=== PATIENT | female | born 1985 | race Caucasian/White ===

== ENCOUNTER 2016-07-23 17:42 | Emergency (ER) | payer OTHER ==
[2016-07-23] MEDS ORDERED: SODIUM CHLORIDE 0.9% 500 ML IV STA (18:32)
[2016-07-23] MEDS ORDERED: ONDANSETRON 4 MG/2 ML VIAL IVP STA ×2 (18:32→18:41)
[2016-07-23 19:33] LABS: ALT 23 U/L (9-52); AST 24 U/L (14-36); Alkaline Phosphatase 104 U/L (38-126); Anion Gap 16 mmol/L; Blood Urea Nitrogen 9 mg/dL (7-17); Calcium 10.9 mg/dL (8.4-10.2); Carbon Dioxide 23 mmol/L (22-30); Chloride 105 mmol/L (98-107); Glucose 95 mg/dL (74-99); Non-African American GFR(MDRD) >60 (>60 ml/min/1.73 sqM); Potassium 4.4 mmol/L (3.5-5.1); Sodium 144 mmol/L (137-145); Total Bilirubin 0.7 mg/dL (0.2-1.3); Total Protein 8.5 g/dL (6.3-8.2)
[2016-07-23 19:38] LABS: Basophils # (A) 0.1 k/uL (0-0.2); Basophils % (A) 1 %; CH 32.9; CHCM 34.4; Eosinophils % (A) 0 %; HCT 47.5 % (34.0-46.0); HDW 2.34; HGB 15.9 gm/dL (11.4-16.0); Luc # (Auto) 0.13; Luc % (Auto) 1; Lymphocytes # (A) 1.8 k/uL (1.0-4.8); Lymphocytes % (A) 17 %; MCHC 33.4 g/dL (31.0-37.0); MCV 95.9 fL (80.0-100.0); Mean Platelet Volume 7.5; Monocytes # (A) 0.4 k/uL (0-1.0); Monocytes % (A) 4 %; Neutrophils # (A) 8.1 k/uL (1.3-7.7); Neutrophils % (A) 77 %; RBC 4.95 m/uL (3.80-5.40); RDW 13.4 % (11.5-15.5); WBC 10.6 k/uL (3.8-10.6); WBC (Perox) 10.86
--- NOTE | 2016-07-23 19:50 | ED ---
General Adult HPI - General Chief complaint: Nausea/Vomiting/Diarrhea Stated complaint: vomiting Time Seen by Provider: 07/23/16 18:31 Source: patient, RN notes reviewed Mode of arrival: ambulatory Limitations: no limitations - History of Present Illness Initial comments: chief complaint history of present illness a 22-year-old female here for complaint of Klonopin withdrawal. Patient reports she's not been on Klonopin for approximately one week. She states her current psychiatrist stopped the medication. She also notes that approximately one month ago she stopped it on her own for one week. She's not been able take rest. All. Denying any suicidal thoughts or depression. - Related Data Home Medications Medication Instructions Recorded Confirmed [place] Carbonate [[place] 600 mg PO HS 07/23/16 07/23/16 Carbonate ER] Previous Rx's Medication Instructions Recorded Diazepam [Valium] 5 mg PO BID #15 tab 07/23/16 Famotidine [Pepcid] 20 mg PO DAILY #30 tablet 07/23/16 Allergies Allergy/AdvReac Type Severity Reaction Status Date / Time No Known Allergies Allergy Verified 07/23/16 17:54 Review of Systems ROS Statement: Those systems with pertinent positive or pertinent negative responses have been documented in the HPI. review of systems not feeling well. States she thinks he is withdrawing from Klonopin. Feels nauseated. Generally unwell. No significant shortness of breath or chest pain or palpitations. No apparent neuro deficits. All systems were reviewed past medical problems significant for Manic episodes. Which is currently taking lithium. Her surgeries include jaw surgery because she stopped Klonopin some 5 or 6 years ago fell had a seizure and broke her jaw. The patient's family history significant for others with manic problems also cancers of the stomach and melanomas. Patient denies ALLERGIES, she does smoke, strongly encouraged to stop, denies alcohol use. ROS Other: All systems not noted in ROS Statement are negative. Past Medical History Past Medical History: Seizure Disorder History of Any Multi-Drug Resistant Organisms: None Reported Additional Past Surgical History / Comment(s): jaw surgery Past Psychological History: Bipolar Smoking Status: Current every day smoker Past Alcohol Use History: None Reported Past Drug Use History: None Reported General Exam - General Exam Comments Initial Comments: General: The patient is awake and alert, states she thinks she is having withdrawal from being off Klonopin for one week. Vital signs show some is 99.7 pulse 57 respiratory rate 14 pulse ox on percent room air blood pressure 136/90 the patient is new to the area. patient is new to the area, she is looking for a new psychologist or psychiatrist. She will be referred on to [facility].. Eye: Pupils are equal, round and reactive to light, extra-ocular movements are intact ; there is normal conjunctiva bilaterally. No signs of icterus. Ears, nose, mouth and throat: There are moist mucous membranes Neck: The neck is supple, Cardiovascular: There is a regular rate and rhythm. No murmur, rub or gallop is appreciated. Respiratory: Lungs are clear to auscultation, respirations are non-labored, breath sounds are equal. No wheezes, stridor, rales, or rhonchi. Gastrointestinal: complains of nausea Back: MRIs aches and pains. Musculoskeletal: Normal ROM, Sensation intact. well-healed scars on her right wrist. Neurological: no neuro deficits Skin: Skin is warm and dry and no rashes or lesions are noted. Psychiatric: history of manic periods, takes lithium and recently her supply of Klonopin through her psychiatrist has ended. Limitations: no limitations Course Vital Signs 07/23/16 07/23/16 17:50 20:04 Temperature 99.7 F H Pulse Rate 57 L 72 Respiratory 14 18 Rate Blood Pressure 136/90 146/90 O2 Sat by Pulse 100 100 Oximetry Medical Decision Making - Medical Decision Making Medical decision making; patient's white count is 10 hemoglobin 15.9 hematocrit of 47. Patient's potassium is 4.4 with a BUN 9 creatinine 0.75 and a GFR is 60. Glucose is 95. Patient received IV Valium which helped with her withdrawal type symptoms and she will be placed on Valium 5 mg twice a day for the next week as she tries to reestablish itself locally with [facility] and a physician. Patient complains of dry heaves she was given Zofran which helped but she was also given Protonix IV. On discharge she'll be placed on as noted above Valium 5 mg twice a day, Pepcid 20 mg twice a day. Antacids as needed when necessary basis. Advised to follow- up with her new physician and call and get established with [facility]. - Lab Data Result diagrams: 07/23/16 19:18 07/23/16 19:18 Lab Results 07/23/16 07/23/16 Range/Units 19:18 19:18 WBC 10.6 (3.8-10.6) k/uL RBC 4.95 (3.80-5.40) m/uL Hgb 15.9 (11.4-16.0) gm/dL Hct 47.5 H (34.0-46.0) % MCV 95.9 (80.0-100.0) fL MCH 32.0 (25.0-35.0) pg MCHC 33.4 (31.0-37.0) g/dL RDW 13.4 (11.5-15.5) % Plt Count 403 (150-450) k/uL Neutrophils % 77 % Lymphocytes % 17 % Monocytes % 4 % Eosinophils % 0 % Basophils % 1 % Neutrophils # 8.1 H (1.3-7.7) k/uL Lymphocytes # 1.8 (1.0-4.8) k/uL Monocytes # 0.4 (0-1.0) k/uL Eosinophils # 0.0 (0-0.7) k/uL Basophils # 0.1 (0-0.2) k/uL Sodium 144 (137-145) mmol/L Potassium 4.4 (3.5-5.1) mmol/L Chloride 105 (98-107) mmol/L Carbon Dioxide 23 (22-30) mmol/L Anion Gap 16 mmol/L BUN 9 (7-17) mg/dL Creatinine 0.75 (0.52-1.04) mg/dL Est GFR (MDRD) Af Amer >60 (>60 ml/min/1.73 sqM) Est GFR (MDRD) Non-Af >60 (>60 ml/min/1.73 sqM) Glucose 95 (74-99) mg/dL Calcium 10.9 H (8.4-10.2) mg/dL Total Bilirubin 0.7 (0.2-1.3) mg/dL AST 24 (14-36) U/L ALT 23 (9-52) U/L Alkaline Phosphatase 104 (38-126) U/L Total Protein 8.5 H (6.3-8.2) g/dL Albumin 5.3 H (3.5-5.0) g/dL Disposition Clinical Impression: Benzodiazepine withdrawal, Gastritis Disposition: HOME SELF-CARE Condition: Fair Additional Instructions: take Valium 5 mg twice a day. Follow up with [facility] and a local physician for further evaluation for help with benzodiazepine withdrawal. Take Pepcid as directed, antacids as needed Prescriptions: Diazepam [Valium] 5 mg PO BID #15 tab Famotidine [Pepcid] 20 mg PO DAILY #30 tablet Referrals: Frank Davis MD [Primary Care Provider] - 1-2 days
[2016-07-23] MEDS ORDERED: DIAZEPAM 5 MG/ML 2 ML SYRINGE IVP STA (19:51)
[2016-07-23 20:05] VITALS: BP 146/90; PULSE 72; RESP 18
[2016-07-23] MEDS ORDERED: PANTOPRAZOLE 40 MG/10 ML VIAL IVP STA (20:25)
[2016-07-23] MEDS ORDERED: HYDROmorphone 1 MG/ML 1 ML SYRINGE IVP STA (20:39)
[2016-07-23 20:54] VITALS: TEMP 98
== END 2016-07-23 20:53 | disposition home or self-care (01) ==
LOC: EC 17:42
DX: F13.239 Sedative, hypnotic or anxiolytic dependence with withdrawal, unspecified (principal); K29.70 Gastritis, unspecified, without bleeding; F31.9 Bipolar disorder, unspecified; F17.200 Nicotine dependence, unspecified, uncomplicated; Z79.899 Other long term (current) drug therapy
CPT/HCPCS: 99284; 96374; 96375 ×3; 96361 ×2; 36415; 80053; 85025; J3360; J2405; J1170; C9113

== ENCOUNTER 2016-08-18 21:05 | Emergency (ER) | payer OTHER ==
[2016-08-18] MEDS ORDERED: ONDANSETRON 4 MG/2 ML VIAL IVP STA (21:35)
[2016-08-18] MEDS ORDERED: HYDROmorphone 1 MG/ML 1 ML SYRINGE IVP STA (21:35)
[2016-08-18] MEDS ORDERED: SODIUM CHLORIDE 0.9% 1,000 ML IV STA (21:35)
--- NOTE | 2016-08-18 21:51 | ED ---
Abdominal Pain HPI - General Chief Complaint: Abdominal Pain Stated Complaint: abdominal pain Time Seen by Provider: 08/18/16 21:29 Source: patient, RN notes reviewed Mode of arrival: ambulatory Limitations: no limitations - History of Present Illness Initial Comments: 30-year-old female presents to the emergency Department chief complaint of left lower quadrant abdominal pain. Patient said this started about an hour ago. Patient states it also and stabbing type pain. Patient states that it is just to her left side. Patient denies any burning or stinging with urination. Patient denies any with radiation. Patient states that she has never had a feeling this before. Patient denies any abdominal surgeries. Patient denies any concern for .Patient denies any recent fever, chills, shortness of breath, chest pain, back pain, nausea vomiting, numbness or tingling, dysuria or hematuria, constipation or diarrhea, headaches or visual changes, or any other current symptoms. - Related Data Home Medications Medication Instructions Recorded Confirmed [place] Carbonate [[place] 600 mg PO HS 07/23/16 08/18/16 Carbonate ER] Cranberry Fruit Concentrate [Azo 250 mg PO DAILY PRN 08/18/16 08/18/16 Cranberry] Mirtazapine [Remeron] 30 mg PO HS 08/18/16 08/18/16 diphenhydrAMINE HCL [Benadryl] 50 mg PO HS PRN 08/18/16 08/18/16 Previous Rx's Medication Instructions Recorded Diazepam [Valium] 5 mg PO BID #15 tab 07/23/16 Allergies Allergy/AdvReac Type Severity Reaction Status Date / Time No Known Allergies Allergy Verified 08/18/16 22:33 Review of Systems ROS Statement: Those systems with pertinent positive or pertinent negative responses have been documented in the HPI. ROS Other: All systems not noted in ROS Statement are negative. Past Medical History Past Medical History: Seizure Disorder History of Any Multi-Drug Resistant Organisms: None Reported Additional Past Surgical History / Comment(s): jaw surgery Past Psychological History: Bipolar Smoking Status: Current every day smoker Past Alcohol Use History: None Reported Past Drug Use History: None Reported General Exam - General Exam Comments Initial Comments: General: The patient is awake and alert, in no distress, and does not appear acutely ill. Eye: Pupils are equal, round and reactive to light, extra-ocular movements are intact; there is normal conjunctiva bilaterally. No signs of icterus. Ears, nose, mouth and throat: There are moist mucous membranes. Neck: The neck is supple, there is no tenderness. Cardiovascular: There is a regular rate and rhythm. No murmur, rub or gallop is appreciated. Respiratory: Lungs are clear to auscultation, respirations are non-labored, breath sounds are equal. No wheezes, stridor, rales, or rhonchi. Gastrointestinal: Soft, non-distended, left lower quadrant tenderness of the abdomen without masses or organomegaly noted. There is no rebound or guarding present. No CVA tenderness. Bowel sounds are unremarkable. Back: There is no tenderness to palpation in the midline. There is no obvious deformity. No rashes noted. Musculoskeletal: Normal ROM, no tenderness, There is no pedal edema. There is no calf tenderness or swelling. Sensation intact. Pulses equal bilaterally 2+. Neurological: CN II-XII intact, There are no obvious motor or sensory deficits. Coordination appears grossly intact. Speech is normal. Skin: Skin is warm and dry and no rashes or lesions are noted. Psychiatric: Cooperative, appropriate mood & affect, normal judgment. Limitations: no limitations Course Vital Signs 08/18/16 08/19/16 21:13 01:00 Temperature 97.8 F Pulse Rate 80 80 Respiratory 18 16 Rate Blood Pressure 120/77 106/56 O2 Sat by Pulse 96 Oximetry - Reevaluation(s) Reevaluation #1: 08/19/16 01:44 Patient continues to request Dilaudid. Reevaluation #2: 08/19/16 01:44 Patient did have a suspected fall when going to the bathroom. 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 This time we did discuss what to watch for and follow-up. Medical Decision Making - Medical Decision Making 30-year-old female presents for left-sided abdominal pain. This time ultrasound CAT scan and lab work is reviewed that does not show any acute process. This time the patient is requesting discharge home. This time we discussed close follow-up with discussed return parameters and all the patient' s questions. She stated that she understood and she is given the plan. At this time she'll be discharged home. - Lab Data Result diagrams: 08/18/16 21:57 08/18/16 21:57 Lab Results 08/18/16 08/18/16 08/18/16 Range/Units 21:57 21:57 21:57 WBC 9.1 (3.8-10.6) k/uL RBC 4.22 (3.80-5.40) m/uL Hgb 14.3 (11.4-16.0) gm/dL Hct 40.2 (34.0-46.0) % MCV 95.2 (80.0-100.0) fL MCH 33.9 (25.0-35.0) pg MCHC 35.6 (31.0-37.0) g/dL RDW 12.9 (11.5-15.5) % Plt Count 327 (150-450) k/uL Neutrophils % 38 % Lymphocytes % 42 % Monocytes % 8 % Eosinophils % 8 % Basophils % 1 % Neutrophils # 3.5 (1.3-7.7) k/uL Lymphocytes # 3.8 (1.0-4.8) k/uL Monocytes # 0.7 (0-1.0) k/uL Eosinophils # 0.7 (0-0.7) k/uL Basophils # 0.1 (0-0.2) k/uL Sodium 139 (137-145) mmol/L Potassium 4.4 (3.5-5.1) mmol/L Chloride 106 (98-107) mmol/L Carbon Dioxide 24 (22-30) mmol/L Anion Gap 9 mmol/L BUN 10 (7-17) mg/dL Creatinine 0.80 (0.52-1.04) mg/dL Est GFR (MDRD) Af Amer >60 (>60 ml/min/1.73 sqM) Est GFR (MDRD) Non-Af >60 (>60 ml/min/1.73 sqM) Glucose 116 H (74-99) mg/dL Plasma Lactic Acid Ki 1.2 (0.7-2.0) mmol/L Calcium 9.6 (8.4-10.2) mg/dL Total Bilirubin 0.4 (0.2-1.3) mg/dL AST 20 (14-36) U/L ALT 24 (9-52) U/L Alkaline Phosphatase 81 (38-126) U/L Total Protein 6.3 (6.3-8.2) g/dL Albumin 4.1 (3.5-5.0) g/dL Amylase 46 (30-110) U/L Lipase 48 (23-300) U/L Urine Color Urine Appearance (Clear) Urine pH (5.0-8.0) Ur Specific [place] (1.001-1.035) Urine Protein (Negative) Urine Glucose (UA) (Negative) Urine Ketones (Negative) Urine Blood (Negative) Urine Nitrite (Negative) Urine Bilirubin (Negative) Urine Urobilinogen (<2.0) mg/dL Ur Leukocyte Esterase (Negative) Urine RBC (0-5) /hpf Urine WBC (0-5) /hpf Ur Squamous Epith Cells (0-4) /hpf Urine Bacteria (None) /hpf Urine HCG, Qual (Not Detectd) 08/18/16 08/18/16 Range/Units 22:20 22:20 WBC (3.8-10.6) k/uL RBC (3.80-5.40) m/uL Hgb (11.4-16.0) gm/dL Hct (34.0-46.0) % MCV (80.0-100.0) fL MCH (25.0-35.0) pg MCHC (31.0-37.0) g/dL RDW (11.5-15.5) % Plt Count (150-450) k/uL Neutrophils % % Lymphocytes % % Monocytes % % Eosinophils % % Basophils % % Neutrophils # (1.3-7.7) k/uL Lymphocytes # (1.0-4.8) k/uL Monocytes # (0-1.0) k/uL Eosinophils # (0-0.7) k/uL Basophils # (0-0.2) k/uL Sodium (137-145) mmol/L Potassium (3.5-5.1) mmol/L Chloride (98-107) mmol/L Carbon Dioxide (22-30) mmol/L Anion Gap mmol/L BUN (7-17) mg/dL Creatinine (0.52-1.04) mg/dL Est GFR (MDRD) Af Amer (>60 ml/min/1.73 sqM) Est GFR (MDRD) Non-Af (>60 ml/min/1.73 sqM) Glucose (74-99) mg/dL Plasma Lactic Acid Ki (0.7-2.0) mmol/L Calcium (8.4-10.2) mg/dL Total Bilirubin (0.2-1.3) mg/dL AST (14-36) U/L ALT (9-52) U/L Alkaline Phosphatase (38-126) U/L Total Protein (6.3-8.2) g/dL Albumin (3.5-5.0) g/dL Amylase (30-110) U/L Lipase (23-300) U/L Urine Color Light Yellow Urine Appearance Cloudy H (Clear) Urine pH 6.0 (5.0-8.0) Ur Specific [place] 1.004 (1.001-1.035) Urine Protein Negative (Negative) Urine Glucose (UA) Negative (Negative) Urine Ketones Negative (Negative) Urine Blood Negative (Negative) Urine Nitrite Negative (Negative) Urine Bilirubin Negative (Negative) Urine Urobilinogen <2.0 (<2.0) mg/dL Ur Leukocyte Esterase Negative (Negative) Urine RBC 1 (0-5) /hpf Urine WBC 3 (0-5) /hpf Ur Squamous Epith Cells 3 (0-4) /hpf Urine Bacteria Occasional H (None) /hpf Urine HCG, Qual Not Detected (Not Detectd) Disposition Clinical Impression: Abdominal pain Disposition: TRANSFER TO PSYCH HOSP/UNIT Condition: Stable Instructions: Abdominal Pain (ED) Additional Instructions: Please use medication as discussed. Please follow up with family doctor if symptoms have not improved over the next two days. Please return to the emergency room if your symptoms increase or worsen or for any other concerns. Referrals: Frank Davis MD [Primary Care Provider] - 1-2 days Time of Disposition: 01:44
[2016-08-18 22:17] LABS: Basophils # (A) 0.1 k/uL (0-0.2); Basophils % (A) 1 %; CH 32.1; CHCM 33.9; Eosinophils # (A) 0.7 k/uL (0-0.7); Eosinophils % (A) 8 %; HCT 40.2 % (34.0-46.0); HDW 2.34; HGB 14.3 gm/dL (11.4-16.0); Luc # (Auto) 0.33; Luc % (Auto) 4; Lymphocytes # (A) 3.8 k/uL (1.0-4.8); Lymphocytes % (A) 42 %; MCH 33.9 pg (25.0-35.0); MCHC 35.6 g/dL (31.0-37.0); MCV 95.2 fL (80.0-100.0); Mean Platelet Volume 7.7; Monocytes # (A) 0.7 k/uL (0-1.0); Monocytes % (A) 8 %; Neutrophils # (A) 3.5 k/uL (1.3-7.7); Neutrophils % (A) 38 %; RBC 4.22 m/uL (3.80-5.40); RDW 12.9 % (11.5-15.5); WBC 9.1 k/uL (3.8-10.6); WBC (Perox) 8.98
[2016-08-18 22:19] LABS: ALT 24 U/L (9-52); AST 20 U/L (14-36); Alkaline Phosphatase 81 U/L (38-126); Amylase 46 U/L (30-110); Anion Gap 9 mmol/L; Blood Urea Nitrogen 10 mg/dL (7-17); Calcium 9.6 mg/dL (8.4-10.2); Carbon Dioxide 24 mmol/L (22-30); Chloride 106 mmol/L (98-107); Glucose 116 mg/dL (74-99); Non-African American GFR(MDRD) >60 (>60 ml/min/1.73 sqM); Potassium 4.4 mmol/L (3.5-5.1); Sodium 139 mmol/L (137-145); Total Bilirubin 0.4 mg/dL (0.2-1.3); Total Protein 6.3 g/dL (6.3-8.2)
[2016-08-18 22:32] LABS: Appearance,Urine Cloudy (Clear); Bacteria,Urine Occasional /hpf; Bilirubin,Urine Negative (Negative); Glucose,Urine (UA) Negative (Negative); Ketones,Urine Negative (Negative); Leukocyte Esterase,Urine Negative (Negative); Nitrite,Urine Negative (Negative); Particle Count 1587; Protein,Urine Negative (Negative); RBC,Urine 1 /hpf (0-5); Specific Gravity,Urine 1.004 (1.001-1.035); Squamous Epithelial Cell,Urine 3 /hpf (0-4); UA Billing (MACRO vs. MICRO) MICRO; Urobilinogen,Urine <2.0 mg/dL (<2.0); WBC,Urine 3 /hpf (0-5)
[2016-08-18] MEDS ORDERED: KETOROLAC 30 MG/ML 1 ML VIAL IVP STA (23:06)
--- NOTE | 2016-08-18 23:53 | US ---
EXAM: US Pelvis, Transvaginal CLINICAL HISTORY: Reason: Pain TECHNIQUE: Real-time transvaginal pelvic ultrasound (complete) with image documentation. Transvaginal imaging was used for better evaluation of the endometrium and adnexa. COMPARISON: No relevant prior studies available. FINDINGS: Note, transvaginal imaging only. Uterus/cervix: Uterine size measured at 6.1 x 4.0 x 3.6 cm. no myometrial abnormality is seen. Endometrial stripe within normal limits, thickness measures 8.4 mm. Tiny cervical nabothian cysts. Right ovary: Right ovary measures 2.9 x 1.5 x 1.3 cm and contains small follicles with arterial and venous flow present. Left ovary: Left ovary measures 2.8 x 1.9 x 1.6 cm and contains a 1.9 x 1.3 x 1.2 cm cyst or dominant follicle, along with other smaller follicles within. Arterial and venous flow seen in the left ovary. Free fluid: No free fluid is seen. Bladder: Limited evaluation with this probe. IMPRESSION: Exam within physiologic normal limits including 1.9 cm cyst or dominant follicle in the left ovary, without specific source of the patient's pain detected.
[2016-08-18] MEDS ORDERED: RX INFO: IV CONTRAST WAS GIVEN 1 EACH MISC MISCELLANE PRN (23:59)
--- NOTE | 2016-08-19 00:59 | CT ---
EXAM: CT Abdomen and Pelvis With Intravenous Contrast CLINICAL HISTORY: Reason: Pain TECHNIQUE: Axial computed tomography images of the abdomen and pelvis with intravenous contrast. CTDI is 9.60 mGy and DLP is 342.50 mGy-cm. This CT exam was performed using one or more of the following dose reduction techniques: automated exposure control, adjustment of the mA and/or kV according to patient size, and/or use of iterative reconstruction technique. COMPARISON: Earlier pelvic ultrasound of the same evening. FINDINGS: Lower thorax: No acute findings. ABDOMEN: Liver: Small amount of focal fat adjacent to the falciform ligament. Gallbladder and bile ducts: Unremarkable. No calcified stones. No ductal dilation. Pancreas: Unremarkable. No mass. No ductal dilation. Spleen: Unremarkable. No splenomegaly. Adrenals: Unremarkable. No mass. Kidneys and ureters: Unremarkable. No solid mass. No hydronephrosis. Stomach and bowel: Mild to moderate amount of colonic stool. No obstruction. Appendix: Radiodense debris or several appendicoliths filling the lumen of an otherwise normal-appearing appendix without periappendiceal stranding to suggest acute appendicitis. PELVIS: Bladder: Distended urinary bladder. Reproductive: Small left ovarian cyst was better seen by ultrasound. ABDOMEN and PELVIS: Intraperitoneal space: No free air. No significant fluid collection. Bones/joints: Mild leftward curvature centered at the L1-2 level. Mild bilateral SI joint sclerosis with vacuum phenomena. No acute osseous abnormality. Soft tissues: Unremarkable. Vasculature: No abdominal aortic aneurysm. Lymph nodes: No adenopathy. IMPRESSION: 1. No definite acute intra-abdominal or pelvic abnormality is seen, as above. 2. Radiodense debris or appendicoliths within the lumen of otherwise normal-appearing appendix without periappendiceal stranding to suggest acute appendicitis at this time. This could be correlated and followed clinically to guide short-term follow-up if clinically indicated. 3. Additional findings as above.
[2016-08-19] MEDS ORDERED: METOCLOPRAMIDE 5 MG/ML 2 ML VIAL IVP STA (01:13)
[2016-08-19] MEDS ORDERED: DICYCLOMINE 10 MG/ML 2 ML AMP IM STA (01:13)
[2016-08-19 02:11] VITALS: BP 108/69; PULSE 83; RESP 20; TEMP 97.4
== END 2016-08-19 02:11 ==
LOC: EC 21:05
DX: R10.32 Left lower quadrant pain (principal); F31.9 Bipolar disorder, unspecified; F17.200 Nicotine dependence, unspecified, uncomplicated; Z79.899 Other long term (current) drug therapy
CPT/HCPCS: 36415; 80053; 82150; 83605; 83690; 85025; 81001; 81025; 87040; 87086; 93975; 76830; 74177; 99284; 96374; 96375 ×3; 96361; 96372; J0500; J2765; J2405; J1885; J1170; Q9967

== ENCOUNTER 2016-11-10 17:59 | Emergency (ER) | payer OTHER ==
[2016-11-10 18:16] VITALS: BP 132/83; PULSE 69; RESP 18; TEMP 98.2
[2016-11-10] MEDS ORDERED: AMOXIC-POT CLAV 875-125MG 1 EACH TAB PO STA (18:22)
--- NOTE | 2016-11-10 18:25 | ED ---
Animal Bite HPI - General Chief Complaint: Animal Bite Stated Complaint: Cat Bite Time Seen by Provider: 11/10/16 18:19 Source: patient, RN notes reviewed Mode of arrival: ambulatory Limitations: no limitations - History of Present Illness Initial Comments: This is a [id number] 31-year-old female presents emergency department after being bit by her own cat. 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 She states the cat became upset and bit her in the dorsum of her right hand. 2 lesser sent it Also bit the palmar aspect the left hand. She is having some pain to the right hand which is exacerbated by movement. She has some tingling into the fingers. Patient states that her tetanus shot is up-to-date. She has no ALLERGIES to antibiotics. Injury occurred 6 hours prior to arrival. Pain is increased by movement. Patient also states that she was scratched several times. Patient states that she did clean the area with peroxide prior to arrival - Related Data Home Medications Medication Instructions Recorded Confirmed [place] Carbonate [[place] 600 mg PO HS 07/23/16 08/18/16 Carbonate ER] Cranberry Fruit Concentrate [Azo 250 mg PO DAILY PRN 08/18/16 08/18/16 Cranberry] Mirtazapine [Remeron] 30 mg PO HS 08/18/16 08/18/16 diphenhydrAMINE HCL [Benadryl] 50 mg PO HS PRN 08/18/16 08/18/16 Previous Rx's Medication Instructions Recorded Diazepam [Valium] 5 mg PO BID #15 tab 07/23/16 Acetaminophen-Codeine 300-30mg 1 each PO Q4H PRN #20 tablet 11/10/16 [Tylenol w/codeine #3] Amoxicillin/Potassium Clav 1 each PO Q12HR #20 tab 11/10/16 [Augmentin 875-125 Tablet] Allergies Allergy/AdvReac Type Severity Reaction Status Date / Time No Known Allergies Allergy Verified 11/10/16 18:16 Review of Systems ROS Statement: Those systems with pertinent positive or pertinent negative responses have been documented in the HPI. ROS Other: All systems not noted in ROS Statement are negative. Past Medical History Past Medical History: Seizure Disorder History of Any Multi-Drug Resistant Organisms: None Reported Additional Past Surgical History / Comment(s): jaw surgery Past Psychological History: Bipolar Smoking Status: Current every day smoker Past Alcohol Use History: None Reported Past Drug Use History: None Reported General Exam - General Exam Comments Initial Comments: Well-developed, well-nourished 31-year-old female in no distress Limitations: no limitations General appearance: alert, in no apparent distress Head exam: Present: atraumatic, normocephalic, normal inspection Eye exam: Present: normal appearance, EOMI Neck exam: Present: normal inspection Respiratory exam: Present: normal lung sounds bilaterally. Absent: respiratory distress, wheezes, rales, rhonchi, stridor Cardiovascular Exam: Present: regular rate, normal rhythm, normal heart sounds. Absent: systolic murmur, diastolic murmur, rubs, gallop, clicks Extremities exam: Present: full ROM, normal capillary refill, other (Patient has several superficial abrasions to the dorsum of both hands. Patient has 3 puncture wounds to the dorsum of her right hand. These are very small, less than 0.5 cm in diameter. There is no active bleeding. There is no lymphangitis. No erythema. No evidence of foreign body. Range of motion is full with some discomfort of the right hand. Capillary refills less than 2 seconds bilaterally. Radial pulses 2+ out of 4.) Neurological exam: Present: alert, oriented X3, CN II-XII intact Psychiatric exam: Present: normal affect, normal mood Skin exam: Present: warm, dry, normal color Course Vital Signs 11/10/16 18:11 Temperature 98.2 F Pulse Rate 69 Respiratory 18 Rate Blood Pressure 132/83 O2 Sat by Pulse 99 Oximetry Medical Decision Making - Medical Decision Making Puncture wound from cat bite to dorsum of right hand, superficial abrasions to both hands Return and follow-up parameters discussed. Patient told to return immediately if symptoms worsen or signs and symptoms of infection develop. Wound care discussed, signs and symptoms of infection discussed. Disposition Clinical Impression: Cat bite, Puncture wound of hand, right, Abrasion of hand, left, Abrasion of hand, right Disposition: HOME SELF-CARE Instructions: Animal Bite (ED) Additional Instructions: Return to the ER at once if the symptoms worsen or problems or difficulties arise. Prescriptions: Acetaminophen-Codeine 300-30mg [Tylenol w/codeine #3] 1 each PO Q4H PRN #20 tablet PRN Reason: Pain Amoxicillin/Potassium Clav [Augmentin 875-125 Tablet] 1 each PO Q12HR #20 tab Referrals: Frank Davis MD [Primary Care Provider] - 1-2 days Time of Disposition: 19:02
--- NOTE | 2016-11-10 18:40 | XR ---
EXAMINATION TYPE: XR hand complete RT DATE OF EXAM: 11/10/2016 COMPARISON: NONE HISTORY: Pain and trauma TECHNIQUE: 3 views FINDINGS: I see no fracture nor dislocation. Metacarpals are intact. Joint spaces are normal. IMPRESSION: Negative right hand exam
== END 2016-11-10 19:07 | disposition home or self-care (01) ==
LOC: EC 17:59
DX: S61.431A Puncture wound without foreign body of right hand, initial encounter (principal); S60.512A Abrasion of left hand, initial encounter; F31.9 Bipolar disorder, unspecified; F17.200 Nicotine dependence, unspecified, uncomplicated; Z79.899 Other long term (current) drug therapy; W55.01XA Bitten by cat, initial encounter
CPT/HCPCS: 99283

== ENCOUNTER 2017-04-07 21:31 | Emergency (ER) | payer OTHER ==
[2017-04-07 21:39] VITALS: RESP 18; TEMP 98.3
[2017-04-07] MEDS ORDERED: SODIUM CHLORIDE 0.9% 1,000 ML IV STA ×2 (22:01)
[2017-04-07] MEDS ORDERED: DIPH,PERTUS(ACELL)TETVAC-LF 0.5 ML VIAL IM ONE (22:03)
--- NOTE | 2017-04-07 22:08 | ED ---
Syncope HPI - General Chief Complaint: Syncope Stated Complaint: Syncope Time Seen by Provider: 04/07/17 21:41 Source: patient, RN notes reviewed, old records reviewed Mode of arrival: ambulatory Limitations: no limitations - History of Present Illness Initial Comments: Patient is a 31-year-old female presents emergency Department a chief complaint of multiple syncopal episodes over the past 2 days. Patient reports that her first episode occurred yesterday evening while she was at home. She states that she had 2 episodes occur today. While she was at work. Patient states that she hit her head and had a syncopal episode of loss of consciousness and caused an abrasion over the left side of her head. She reports shaking of her tetanus shot further evaluation. She states she thinks that she is feeling ill and reports that she may have mono again. She states that she has had no some difficulty breathing earlier today, she denies any chest pain or abdominal pain. She reports she has history of ovarian cysts and states she does not give regular periods. - Related Data Home Medications Medication Instructions Recorded Confirmed Mirtazapine [Remeron] 30 mg PO HS 08/18/16 04/07/17 [place] Carbonate 300 mg PO DAILY 04/07/17 04/07/17 Previous Rx's Medication Instructions Recorded Diazepam [Valium] 5 mg PO BID #15 tab 07/23/16 HYDROcodone/APAP 5-325MG [Foster 1 tab PO Q6HR PRN #10 tab 04/08/17 5-325] Ondansetron Odt [Zofran Odt] 4 mg PO Q8HR PRN #12 tab 04/08/17 Allergies Allergy/AdvReac Type Severity Reaction Status Date / Time risperidone [From Risperdal] AdvReac SEIZURE Verified 04/07/17 22:10 Review of Systems ROS Statement: Those systems with pertinent positive or pertinent negative responses have been documented in the HPI. ROS Other: All systems not noted in ROS Statement are negative. Past Medical History Past Medical History: Seizure Disorder History of Any Multi-Drug Resistant Organisms: None Reported Past Surgical History: No Surgical Hx Reported Additional Past Surgical History / Comment(s): jaw surgery Past Psychological History: Anxiety, Bipolar Smoking Status: Current every day smoker Past Alcohol Use History: Rare Past Drug Use History: None Reported General Exam - General Exam Comments Initial Comments: This patient is a 31-year-old female. No acute distress. Limitations: no limitations General appearance: alert, in no apparent distress, other (abrasion over left temporal scalp. ) Head exam: Present: atraumatic, normocephalic, normal inspection Eye exam: Present: normal appearance, PERRL, EOMI. Absent: scleral icterus, conjunctival injection, periorbital swelling ENT exam: Present: normal exam, mucous membranes moist Neck exam: Present: normal inspection. Absent: tenderness, meningismus, lymphadenopathy Respiratory exam: Present: normal lung sounds bilaterally. Absent: respiratory distress, wheezes, rales, rhonchi, stridor Cardiovascular Exam: Present: regular rate, normal rhythm, normal heart sounds. Absent: systolic murmur, diastolic murmur, rubs, gallop, clicks GI/Abdominal exam: Present: soft, normal bowel sounds. Absent: distended, tenderness, guarding, rebound, rigid Extremities exam: Present: normal inspection, full ROM, normal capillary refill. Absent: tenderness, pedal edema, joint swelling, calf tenderness Back exam: Present: normal inspection Neurological exam: Present: alert, oriented X3, CN II-XII intact Psychiatric exam: Present: normal affect Skin exam: Present: warm, dry, intact, normal color. Absent: rash Course Vital Signs 04/07/17 04/08/17 21:34 00:32 Temperature 98.3 F Pulse Rate 69 50 L Respiratory 18 18 Rate Blood Pressure 132/81 111/56 O2 Sat by Pulse 99 98 Oximetry EKG Findings - EKG Comments: EKG Findings:: EKG shows marked sinus bradycardia ventricular rate of 46 bpm. DC interval 154 ms. QRS duration 94 ms. QT QTc is 4:30/376 ms. No evidence of ST elevation or T-wave inversions. No vesicular ventricular arrhythmias. Medical Decision Making - Medical Decision Making Patient is a 31-year-old female presents emergency Department a chief complaint of multiple syncopal episodes over the past 2 days. Patient reports that her first episode occurred yesterday evening while she was at home. She states that she had 2 episodes occur today. While she was at work. Patient states that she hit her head and had a syncopal episode of loss of consciousness and caused an abrasion over the left side of her head. Patient has no focal or lateralizng neurlogical deficits. PAtient CXR was normal, Brain CT was normal. Patient has marked bradycardia on EKG. She reports she has been told this before. She has followed up with specialist and had holtermonitor in the past. Discussed with normal labs, this could be likely related to her syncopal episodes. She has been advised to follow up with PCP and she plans to tomorrow. Discussed head injury instructions and all questions answered and return parameter discussed. - Lab Data Result diagrams: 04/07/17 22:15 04/07/17 22:15 Lab Results 04/07/17 04/07/17 04/07/17 Range/Units 22:05 22:05 22:15 WBC (3.8-10.6) k/uL RBC (3.80-5.40) m/uL Hgb (11.4-16.0) gm/dL Hct (34.0-46.0) % MCV (80.0-100.0) fL MCH (25.0-35.0) pg MCHC (31.0-37.0) g/dL RDW (11.5-15.5) % Plt Count (150-450) k/uL Neutrophils % % Lymphocytes % % Monocytes % % Eosinophils % % Basophils % % Neutrophils # (1.3-7.7) k/uL Lymphocytes # (1.0-4.8) k/uL Monocytes # (0-1.0) k/uL Eosinophils # (0-0.7) k/uL Basophils # (0-0.2) k/uL PT (9.0-12.0) sec INR (<1.2) APTT (22.0-30.0) sec Sodium (137-145) mmol/L Potassium (3.5-5.1) mmol/L Chloride (98-107) mmol/L Carbon Dioxide (22-30) mmol/L Anion Gap mmol/L BUN (7-17) mg/dL Creatinine (0.52-1.04) mg/dL Est GFR (MDRD) Af Amer (>60 ml/min/1.73 sqM) Est GFR (MDRD) Non-Af (>60 ml/min/1.73 sqM) Glucose (74-99) mg/dL Calcium (8.4-10.2) mg/dL Total Bilirubin (0.2-1.3) mg/dL AST (14-36) U/L ALT (9-52) U/L Alkaline Phosphatase (38-126) U/L Total Creatine Kinase 162 H (30-135) U/L CK-MB (CK-2) 1.4 (0.0-2.4) ng/mL CK-MB (CK-2) Rel Index 0.9 Troponin I <0.012 (0.000-0.034) ng/mL Total Protein (6.3-8.2) g/dL Albumin (3.5-5.0) g/dL Urine Color Light Yellow Urine Appearance Cloudy H (Clear) Urine pH 6.5 (5.0-8.0) Ur Specific [place] 1.008 (1.001-1.035) Urine Protein Negative (Negative) Urine Glucose (UA) Negative (Negative) Urine Ketones Negative (Negative) Urine Blood Negative (Negative) Urine Nitrite Negative (Negative) Urine Bilirubin Negative (Negative) Urine Urobilinogen <2.0 (<2.0) mg/dL Ur Leukocyte Esterase Trace H (Negative) Urine RBC 1 (0-5) /hpf Urine WBC 8 H (0-5) /hpf Ur Squamous Epith Cells 4 (0-4) /hpf Urine Bacteria Moderate H (None) /hpf Urine Mucus Rare H (None) /hpf Urine HCG, Qual Not Detected (Not Detectd) 04/07/17 04/07/17 04/07/17 Range/Units 22:15 22:15 22:15 WBC 8.1 (3.8-10.6) k/uL RBC 4.72 (3.80-5.40) m/uL Hgb 14.6 (11.4-16.0) gm/dL Hct 46.5 H (34.0-46.0) % MCV 98.4 (80.0-100.0) fL MCH 31.0 (25.0-35.0) pg MCHC 31.5 (31.0-37.0) g/dL RDW 13.2 (11.5-15.5) % Plt Count 357 (150-450) k/uL Neutrophils % 59 % Lymphocytes % 31 % Monocytes % 6 % Eosinophils % 2 % Basophils % 1 % Neutrophils # 4.8 (1.3-7.7) k/uL Lymphocytes # 2.5 (1.0-4.8) k/uL Monocytes # 0.5 (0-1.0) k/uL Eosinophils # 0.2 (0-0.7) k/uL Basophils # 0.1 (0-0.2) k/uL PT 11.2 (9.0-12.0) sec INR 1.2 H (<1.2) APTT 26.8 (22.0-30.0) sec Sodium 145 (137-145) mmol/L Potassium 4.5 (3.5-5.1) mmol/L Chloride 104 (98-107) mmol/L Carbon Dioxide 29 (22-30) mmol/L Anion Gap 12 mmol/L BUN 11 (7-17) mg/dL Creatinine 0.80 (0.52-1.04) mg/dL Est GFR (MDRD) Af Amer >60 (>60 ml/min/1.73 sqM) Est GFR (MDRD) Non-Af >60 (>60 ml/min/1.73 sqM) Glucose 94 (74-99) mg/dL Calcium 10.6 H (8.4-10.2) mg/dL Total Bilirubin 0.2 (0.2-1.3) mg/dL AST 25 (14-36) U/L ALT 26 (9-52) U/L Alkaline Phosphatase 92 (38-126) U/L Total Creatine Kinase (30-135) U/L CK-MB (CK-2) (0.0-2.4) ng/mL CK-MB (CK-2) Rel Index Troponin I (0.000-0.034) ng/mL Total Protein 7.8 (6.3-8.2) g/dL Albumin 5.1 H (3.5-5.0) g/dL Urine Color Urine Appearance (Clear) Urine pH (5.0-8.0) Ur Specific [place] (1.001-1.035) Urine Protein (Negative) Urine Glucose (UA) (Negative) Urine Ketones (Negative) Urine Blood (Negative) Urine Nitrite (Negative) Urine Bilirubin (Negative) Urine Urobilinogen (<2.0) mg/dL Ur Leukocyte Esterase (Negative) Urine RBC (0-5) /hpf Urine WBC (0-5) /hpf Ur Squamous Epith Cells (0-4) /hpf Urine Bacteria (None) /hpf Urine Mucus (None) /hpf Urine HCG, Qual (Not Detectd) - EKG Data -: EKG Interpreted by Me EKG shows normal: sinus rhythm, axis, intervals, QRS complexes, ST-T waves Rate: bradycardia 04/08/17 15:13 Patient EKG shows signifcant bradycardia of Vent rate of 46. No other significant changes. - Radiology Data Radiology results: report reviewed CXR was reviewed and normal. CT brain shows no acute process. Disposition Clinical Impression: Syncope, Bradycardia on ECG, Head injury Disposition: HOME SELF-CARE Condition: Good Instructions: Syncope (ED), Concussion (ED) Additional Instructions: Patient advised to rest, remain hydrated. Take Motrin Tylenol for headache and pain. Patient is to be monitored for the next 24-48 hours if there is any alarming signs symptoms occur such as alteration in mental status patient is to return to emergency department at once. Patient should follow-up with primary care physician as well as cardiology. Return to the emergency department if any alarming signs or symptoms occur. Prescriptions: HYDROcodone/APAP 5-325MG [[place] 5-325] 1 tab PO Q6HR PRN #10 tab PRN Reason: Pain Ondansetron Odt [Zofran Odt] 4 mg PO Q8HR PRN #12 tab PRN Reason: Pain Referrals: Nonstaff,Physician [Primary Care Provider] - 1-2 days Shellie Crawford MD [STAFF PHYSICIAN] - 1-2 days Dontrell Diaz MD [STAFF PHYSICIAN] - 1-2 days Time of Disposition: 00:36
[2017-04-07 22:25] LABS: Appearance,Urine Cloudy (Clear); Bacteria,Urine Moderate /hpf; Bilirubin,Urine Negative (Negative); Blood,Urine Negative (Negative); Color,Urine Light Yellow; Glucose,Urine (UA) Negative (Negative); Ketones,Urine Negative (Negative); Leukocyte Esterase,Urine Trace (Negative); Mucus,Urine Rare /hpf; Nitrite,Urine Negative (Negative); PH, Urine 6.5 (5.0-8.0); Protein,Urine Negative (Negative); RBC,Urine 1 /hpf (0-5); Specific Gravity,Urine 1.008 (1.001-1.035); Squamous Epithelial Cell,Urine 4 /hpf (0-4); Urobilinogen,Urine <2.0 mg/dL (<2.0); WBC,Urine 8 /hpf (0-5)
[2017-04-07] MEDS ORDERED: ACETAMINOPHEN TAB 500 MG TAB PO STA (22:28)
[2017-04-07 22:32] LABS: Basophils # (A) 0.1 k/uL (0-0.2); Basophils % (A) 1 %; Eosinophils # (A) 0.2 k/uL (0-0.7); Eosinophils % (A) 2 %; HCT 46.5 % (34.0-46.0); HGB 14.6 gm/dL (11.4-16.0); Lymphocytes # (A) 2.5 k/uL (1.0-4.8); Lymphocytes % (A) 31 %; MCHC 31.5 g/dL (31.0-37.0); MCV 98.4 fL (80.0-100.0); Mean Platelet Volume 7.7; Monocytes # (A) 0.5 k/uL (0-1.0); Monocytes % (A) 6 %; Neutrophils # (A) 4.8 k/uL (1.3-7.7); Neutrophils % (A) 59 %; Platelet Count 357 k/uL (150-450); RBC 4.72 m/uL (3.80-5.40); RDW 13.2 % (11.5-15.5); WBC 8.1 k/uL (3.8-10.6)
[2017-04-07 22:41] LABS: INR 1.2 (<1.2); Partial Thromboplastin Time 26.8 sec (22.0-30.0); Prothrombin Time 11.2 sec (9.0-12.0)
--- NOTE | 2017-04-07 22:53 | CT ---
EXAMINATION TYPE: CT brain wo con DATE OF EXAM: 04/07/2017 COMPARISON: NONE HISTORY: Syncope CT DLP: 949.9 mGycm. Automated Exposure Control for Dose Reduction was Utilized. TECHNIQUE: CT scan of the head is performed without contrast. FINDINGS: The ventricles and sulci appear normal. There is no mass effect nor midline shift. There is no sign of intracranial hemorrhage. There is metal artifact from jewelry. The calvarium is intact. CONCLUSION: Normal CT scan of the brain.
--- NOTE | 2017-04-07 22:54 | XR ---
EXAMINATION TYPE: XR chest 2V DATE OF EXAM: 04/07/2017 COMPARISON: NONE HISTORY: Syncope TECHNIQUE: Frontal and lateral views of the chest are obtained. FINDINGS: Heart and mediastinum are normal. Lungs are clear. Diaphragm is normal. Bony thorax appear s normal. IMPRESSION: Normal chest
[2017-04-07 23:03] LABS: ALT 26 U/L (9-52); AST 25 U/L (14-36); Albumin 5.1 g/dL (3.5-5.0); Alkaline Phosphatase 92 U/L (38-126); Blood Urea Nitrogen 11 mg/dL (7-17); Calcium 10.6 mg/dL (8.4-10.2); Carbon Dioxide 29 mmol/L (22-30); Glucose 94 mg/dL (74-99); Potassium 4.5 mmol/L (3.5-5.1); Total Bilirubin 0.2 mg/dL (0.2-1.3); Total Protein 7.8 g/dL (6.3-8.2)
[2017-04-07 23:11] LABS: Anion Gap 12 mmol/L; Chloride 104 mmol/L (98-107); Sodium 145 mmol/L (137-145)
[2017-04-07 23:15] LABS: Creatine Kinase 162 U/L (30-135)
[2017-04-07 23:27] LABS: Creatine Kinase MB 1.4 ng/mL (0.0-2.4); Troponin I <0.012 ng/mL (0.000-0.034)
[2017-04-08] MEDS ORDERED: ONDANSETRON 4 MG/2 ML VIAL IVP STA (00:16)
[2017-04-08] MEDS ORDERED: KETOROLAC 30 MG/ML 1 ML VIAL IVP STA (00:16)
[2017-04-08 00:32] VITALS: BP 111/56; PULSE 50
== END 2017-04-08 00:49 | disposition home or self-care (01) ==
LOC: EC 21:31
DX: S00.01XA Abrasion of scalp, initial encounter (principal); R55 Syncope and collapse; R00.1 Bradycardia, unspecified; F31.9 Bipolar disorder, unspecified; F17.200 Nicotine dependence, unspecified, uncomplicated; Z79.899 Other long term (current) drug therapy; Z88.8 Allergy status to other drugs, medicaments and biological substances; Z23 Encounter for immunization; W22.8XXA Striking against or struck by other objects, initial encounter; Y92.69 Other specified industrial and construction area as the place of occurrence of the external cause
CPT/HCPCS: 36415; 93005; 80053; 82550; 82553; 84484; 85025; 85610; 85730; 81001; 81025; 71046; 70450; 90715; 99285; 96374; 96375; 96361 ×2; 90471; J2405; J1885

== ENCOUNTER 2017-05-15 09:14 | Emergency (ER) | payer OTHER ==
[2017-05-15] MEDS ORDERED: SODIUM CHLORIDE 0.9% 1,000 ML IV STA (10:02)
[2017-05-15 10:38] LABS: Appearance,Urine Clear (Clear); Bilirubin,Urine Negative (Negative); Blood,Urine Negative (Negative); Color,Urine Light Yellow; Glucose,Urine (UA) Negative (Negative); Ketones,Urine Negative (Negative); Leukocyte Esterase,Urine Negative (Negative); Nitrite,Urine Negative (Negative); Protein,Urine Negative (Negative); Specific Gravity,Urine 1.009 (1.001-1.035); Urobilinogen,Urine <2.0 mg/dL (<2.0)
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
[2017-05-15] MEDS ORDERED: ONDANSETRON 4 MG/2 ML VIAL IVP STA (10:39)
[2017-05-15 10:48] LABS: Amphetamine Screen,Urine Not Detected (NotDetected); Barbiturate Screen,Urine Not Detected (NotDetected); Benzodiazepines Screen,Urine Detected (NotDetected); Cocaine Screen,Urine Not Detected (NotDetected); Methadone Screen, Urine Not Detected (NotDetected); Opiate Screen,Urine Not Detected (NotDetected); Oxycodone Screen, Urine Not Detected (NotDetected); Phencyclidine Screen,Urine Not Detected (NotDetected); Tricyclic Antidepressant,Urine Not Detected (NotDetected); Urn Cannabinoid Scrn Not Detected (NotDetected)
[2017-05-15 10:49] LABS: ALT 24 U/L (9-52); AST 20 U/L (14-36); Albumin 4.5 g/dL (3.5-5.0); Alkaline Phosphatase 87 U/L (38-126); Anion Gap 10 mmol/L; Blood Urea Nitrogen 9 mg/dL (7-17); Calcium 9.9 mg/dL (8.4-10.2); Carbon Dioxide 24 mmol/L (22-30); Chloride 109 mmol/L (98-107); Glucose 109 mg/dL (74-99); Potassium 4.4 mmol/L (3.5-5.1); Sodium 143 mmol/L (137-145); Total Bilirubin 0.4 mg/dL (0.2-1.3)
[2017-05-15 11:04] LABS: Basophils % (A) 0 %; Eosinophils # (A) 0.1 k/uL (0-0.7); Eosinophils % (A) 1 %; HCT 42.3 % (34.0-46.0); HGB 14.2 gm/dL (11.4-16.0); Lymphocytes # (A) 1.3 k/uL (1.0-4.8); Lymphocytes % (A) 14 %; MCH 31.6 pg (25.0-35.0); MCHC 33.7 g/dL (31.0-37.0); MCV 93.9 fL (80.0-100.0); Mean Platelet Volume 8.2; Monocytes # (A) 0.3 k/uL (0-1.0); Monocytes % (A) 3 %; Neutrophils # (A) 7.8 k/uL (1.3-7.7); Neutrophils % (A) 81 %; Platelet Count 383 k/uL (150-450); RDW 13.8 % (11.5-15.5); WBC 9.6 k/uL (3.8-10.6)
--- NOTE | 2017-05-15 11:36 | XR ---
EXAMINATION TYPE: XR chest 2V DATE OF EXAM: 05/15/2017 COMPARISON: Previous chest 04/07/2017 HISTORY: Syncope TECHNIQUE: Frontal and lateral views of the chest are obtained. FINDINGS: There is no focal air space opacity, pleural effusion, or pneumothorax seen. The cardiac silhouette size is within normal limits. The osseous structures are intact. There is a spinal curva ture. IMPRESSION: No acute cardiopulmonary process.
[2017-05-15] MEDS ORDERED: DIAZEPAM 5 MG TAB PO STA (11:52)
[2017-05-15 12:02] VITALS: BP 114/69; PULSE 70; RESP 17; TEMP 99.4
== END 2017-05-15 12:25 | disposition home or self-care (01) ==
LOC: EC 09:14
DX: R55 Syncope and collapse (principal); F31.9 Bipolar disorder, unspecified; F43.10 Post-traumatic stress disorder, unspecified; F41.9 Anxiety disorder, unspecified; G40.909 Epilepsy, unspecified, not intractable, without status epilepticus; F17.200 Nicotine dependence, unspecified, uncomplicated; Z79.899 Other long term (current) drug therapy; Z88.8 Allergy status to other drugs, medicaments and biological substances
CPT/HCPCS: 36415; 93005; 80053; 85025; 81003; 81025; 80306; 71046; 99283; 96374; 96361 ×2; J2405

== ENCOUNTER 2017-08-06 19:42 | Emergency (ER) | payer OTHER ==
[2017-08-06 19:59] VITALS: RESP 18
[2017-08-06] MEDS ORDERED: SODIUM CHLORIDE 0.9% 1,000 ML IV ONE (20:32)
--- NOTE | 2017-08-06 20:36 | ED ---
Female Urogenital HPI - General Chief complaint: Vaginal Bleeding Stated complaint: Vaginal Bleeding Time Seen by Provider: 08/06/17 20:18 Source: patient, RN notes reviewed Mode of arrival: ambulatory Limitations: no limitations - History of Present Illness Initial comments: This is a 31-year-old female who presents to the emergency department with chief complaint of vaginal bleeding. Patient states that 3-1/2 hours ago she had sexual intercourse. Following sexual intercourse she went to clean herself up and developed vaginal bleeding. Patient states that she is not currently on her period. She states that she had her period 2 weeks ago. Patient states that she is experiencing a headache, pelvic pain, kidney pain, vaginal pain, hot and cold flashes. She reports a history of ovarian cysts. She states that while she was here in the emergency department she felt nauseous and vomited in the bathroom. Denies diarrhea or constipation. Last Menstrual Period: 07/23/17 - Related Data Home Medications Medication Instructions Recorded Confirmed Mirtazapine [Remeron] 30 mg PO HS 08/18/16 05/15/17 [place] Carbon[place] 300 mg PO DAILY 04/07/17 05/15/17 Diazepam [Valium] 5 mg PO TID 05/15/17 05/15/17 Previous Rx's Medication Instructions Recorded Ondansetron Odt [Zofran ODT] 4 mg PO Q8HR PRN #20 tab 05/15/17 cloNIDine HCL [Catapres] 0.1 mg PO BID #6 tab 05/15/17 Ibuprofen 600 mg PO Q6HR #20 tablet 08/06/17 Allergies Allergy/AdvReac Type Severity Reaction Status Date / Time risperidone [From Risperdal] AdvReac SEIZURE Verified 08/06/17 19:59 Review of Systems ROS Statement: Those systems with pertinent positive or pertinent negative responses have been documented in the HPI. ROS Other: All systems not noted in ROS Statement are negative. Past Medical History Past Medical History: Seizure Disorder Additional Past Medical History / Comment(s): cyst on kidney History of Any Multi-Drug Resistant Organisms: None Reported Past Surgical History: No Surgical Hx Reported Additional Past Surgical History / Comment(s): jaw surgery Past Psychological History: ADD/ADHD, Anxiety, Bipolar, Depression, PTSD Smoking Status: Current every day smoker Past Alcohol Use History: None Reported Past Drug Use History: None Reported General Exam - General Exam Comments Initial Comments: General: Awake and alert, well-developed; in no apparent distress. HEENT: Head atraumatic, normocephalic. Pupils are equal, round and reactive to light. Extraocular movements intact. Oropharynx moist without erythema or exudate. Neck: Supple. Normal ROM. Cardiovascular: Regular rate and rhythm. No murmurs, rubs or gallops. Chest symmetrical. Respiratory: Lungs clear to auscultation bilaterally. No wheezes, rales or rhonchi. Normal respiratory effort with no use of accessory muscles. Abdomen: Soft, non-distended. Minimal tenderness on palpation of right lower quadrant and left upper quadrant. No rigidity, rebound or guarding. Normal bowel sounds in all 4 quadrants. Musculoskeletal: Normal ROM, no tenderness bilateral upper and lower extremities. Ambulating normally. Skin: [place], warm and dry without rashes or lesions. Neurological: Alert and oriented x3. CN II-XII grossly intact. Speech is fluent and answers are appropriate. No focal neuro deficits. Limitations: no limitations External exam: Present: normal external exam Speculum exam: Present: vaginal discharge (thin homogenous milky ). Absent: erythema, vaginal bleeding Course Vital Signs 08/06/17 19:56 Temperature 98.8 F Pulse Rate 79 Respiratory 18 Rate Blood Pressure 127/78 O2 Sat by Pulse 97 Oximetry - Reevaluation(s) Reevaluation #1: At this time, patient complains of bilateral flank pain. I did discuss x-ray findings with her. She does state that she has a history of a benign cyst on her kidney and that she does have a history of kidney stones. X-ray KUB is pending at this time. 08/06/17 22:03 Medical Decision Making - Medical Decision Making This is a 31-year-old female presents to the emergency department chief complaint vaginal bleeding. Patient states that she developed vaginal bleeding after having sexual intercourse. She complains of bilateral flank pain, nausea and vomiting. On physical examination. Abdomen is soft and nontender. CBC and CMP were unremarkable. UA did reveal large blood. X-ray KUB was obtained to rule out kidney stone. This revealed no acute abnormalities. I recommended computed tomography scan to patient as she continued to complain of pain. She refuses, stating that she needs to go home because she has to work at 5 AM. She would like to be discharged home at this time. I did recommend against this. Vital signs have sbeen stable and patient is in no acute distress. She will be discharged home at this time. - Lab Data Result diagrams: 08/06/17 20:53 08/06/17 20:53 Lab Results 08/06/17 08/06/17 08/06/17 Range/Units 20:53 20:53 20:53 WBC 8.1 (3.8-10.6) k/uL RBC 4.55 (3.80-5.40) m/uL Hgb 14.4 (11.4-16.0) gm/dL Hct 43.8 (34.0-46.0) % MCV 96.1 (80.0-100.0) fL MCH 31.7 (25.0-35.0) pg MCHC 33.0 (31.0-37.0) g/dL RDW 13.1 (11.5-15.5) % Plt Count 331 (150-450) k/uL Neutrophils % 58 % Lymphocytes % 29 % Monocytes % 7 % Eosinophils % 4 % Basophils % 1 % Neutrophils # 4.7 (1.3-7.7) k/uL Lymphocytes # 2.4 (1.0-4.8) k/uL Monocytes # 0.6 (0-1.0) k/uL Eosinophils # 0.3 (0-0.7) k/uL Basophils # 0.1 (0-0.2) k/uL PT (9.0-12.0) sec INR (<1.2) APTT (22.0-30.0) sec Sodium 145 (137-145) mmol/L Potassium 4.7 (3.5-5.1) mmol/L Chloride 106 (98-107) mmol/L Carbon Dioxide 26 (22-30) mmol/L Anion Gap 13 mmol/L BUN 11 (7-17) mg/dL Creatinine 0.70 (0.52-1.04) mg/dL Est GFR (CKD-EPI)AfAm >90 (>60 ml/min/1.73 sqM) Est GFR (CKD-EPI)NonAf >90 (>60 ml/min/1.73 sqM) Glucose 82 (74-99) mg/dL Calcium 10.4 H (8.4-10.2) mg/dL Total Bilirubin 0.2 (0.2-1.3) mg/dL AST 22 (14-36) U/L ALT 23 (9-52) U/L Alkaline Phosphatase 83 (38-126) U/L Total Protein 7.1 (6.3-8.2) g/dL Albumin 4.7 (3.5-5.0) g/dL Urine Color Urine Appearance (Clear) Urine pH (5.0-8.0) Ur Specific [place] (1.001-1.035) Urine Protein (Negative) Urine Glucose (UA) (Negative) Urine Ketones (Negative) Urine Blood (Negative) Urine Nitrite (Negative) Urine Bilirubin (Negative) Urine Urobilinogen (<2.0) mg/dL Ur Leukocyte Esterase (Negative) Urine RBC (0-5) /hpf Urine WBC (0-5) /hpf Urine Bacteria (None) /hpf Urine HCG, Qual Not Detected (Not Detectd) 08/06/17 08/06/17 Range/Units 20:53 20:53 WBC (3.8-10.6) k/uL RBC (3.80-5.40) m/uL Hgb (11.4-16.0) gm/dL Hct (34.0-46.0) % MCV (80.0-100.0) fL MCH (25.0-35.0) pg MCHC (31.0-37.0) g/dL RDW (11.5-15.5) % Plt Count (150-450) k/uL Neutrophils % % Lymphocytes % % Monocytes % % Eosinophils % % Basophils % % Neutrophils # (1.3-7.7) k/uL Lymphocytes # (1.0-4.8) k/uL Monocytes # (0-1.0) k/uL Eosinophils # (0-0.7) k/uL Basophils # (0-0.2) k/uL PT 10.9 (9.0-12.0) sec INR 1.1 (<1.2) APTT 24.8 (22.0-30.0) sec Sodium (137-145) mmol/L Potassium (3.5-5.1) mmol/L Chloride (98-107) mmol/L Carbon Dioxide (22-30) mmol/L Anion Gap mmol/L BUN (7-17) mg/dL Creatinine (0.52-1.04) mg/dL Est GFR (CKD-EPI)AfAm (>60 ml/min/1.73 sqM) Est GFR (CKD-EPI)NonAf (>60 ml/min/1.73 sqM) Glucose (74-99) mg/dL Calcium (8.4-10.2) mg/dL Total Bilirubin (0.2-1.3) mg/dL AST (14-36) U/L ALT (9-52) U/L Alkaline Phosphatase (38-126) U/L Total Protein (6.3-8.2) g/dL Albumin (3.5-5.0) g/dL Urine Color Light Yellow Urine Appearance Clear (Clear) Urine pH 6.0 (5.0-8.0) Ur Specific [place] 1.002 (1.001-1.035) Urine Protein Negative (Negative) Urine Glucose (UA) Negative (Negative) Urine Ketones Negative (Negative) Urine Blood Large H (Negative) Urine Nitrite Negative (Negative) Urine Bilirubin Negative (Negative) Urine Urobilinogen <2.0 (<2.0) mg/dL Ur Leukocyte Esterase Negative (Negative) Urine RBC 7 H (0-5) /hpf Urine WBC 3 (0-5) /hpf Urine Bacteria Moderate H (None) /hpf Urine HCG, Qual (Not Detectd) - Radiology Data Radiology results: report reviewed, image reviewed X-ray KUB impression: Nonacute abdomen: Disposition Clinical Impression: Vaginal bleeding, Flank pain Disposition: HOME SELF-CARE Condition: Good Instructions: Flank Pain (ED) Additional Instructions: Please follow up with primary care provider within 1-2 days. Return to emergency department if symptoms should worsen or any concerns arise. Prescriptions: Ibuprofen 600 mg PO Q6HR #20 tablet Is patient prescribed a controlled substance at d/c from ED?: No Referrals: Nonstaff,Physician [Primary Care Provider] - 1-2 days Time of Disposition: 22:47
[2017-08-06 21:06] LABS: Basophils # (A) 0.1 k/uL (0-0.2); Basophils % (A) 1 %; Eosinophils # (A) 0.3 k/uL (0-0.7); Eosinophils % (A) 4 %; HCT 43.8 % (34.0-46.0); HGB 14.4 gm/dL (11.4-16.0); Lymphocytes # (A) 2.4 k/uL (1.0-4.8); Lymphocytes % (A) 29 %; MCH 31.7 pg (25.0-35.0); MCV 96.1 fL (80.0-100.0); Mean Platelet Volume 7.8; Monocytes # (A) 0.6 k/uL (0-1.0); Monocytes % (A) 7 %; Neutrophils # (A) 4.7 k/uL (1.3-7.7); Neutrophils % (A) 58 %; Platelet Count 331 k/uL (150-450); RBC 4.55 m/uL (3.80-5.40); RDW 13.1 % (11.5-15.5); WBC 8.1 k/uL (3.8-10.6)
[2017-08-06] MEDS ORDERED: KETOROLAC 30 MG/ML 1 ML VIAL IVP STA (21:10)
[2017-08-06 21:11] LABS: Appearance,Urine Clear (Clear); Bacteria,Urine Moderate /hpf; Bilirubin,Urine Negative (Negative); Blood,Urine Large (Negative); Color,Urine Light Yellow; Glucose,Urine (UA) Negative (Negative); Ketones,Urine Negative (Negative); Leukocyte Esterase,Urine Negative (Negative); Nitrite,Urine Negative (Negative); Protein,Urine Negative (Negative); RBC,Urine 7 /hpf (0-5); Specific Gravity,Urine 1.002 (1.001-1.035); Urobilinogen,Urine <2.0 mg/dL (<2.0); WBC,Urine 3 /hpf (0-5)
[2017-08-06 21:16] LABS: INR 1.1 (<1.2); Partial Thromboplastin Time 24.8 sec (22.0-30.0); Prothrombin Time 10.9 sec (9.0-12.0)
[2017-08-06 21:18] LABS: ALT 23 U/L (9-52); AST 22 U/L (14-36); Albumin 4.7 g/dL (3.5-5.0); Alkaline Phosphatase 83 U/L (38-126); Anion Gap 13 mmol/L; Blood Urea Nitrogen 11 mg/dL (7-17); Calcium 10.4 mg/dL (8.4-10.2); Carbon Dioxide 26 mmol/L (22-30); Chloride 106 mmol/L (98-107); Glucose 82 mg/dL (74-99); Potassium 4.7 mmol/L (3.5-5.1); Sodium 145 mmol/L (137-145); Total Bilirubin 0.2 mg/dL (0.2-1.3); Total Protein 7.1 g/dL (6.3-8.2)
--- NOTE | 2017-08-06 22:40 | XR ---
EXAMINATION TYPE: XR KUB DATE OF EXAM: 08/06/2017 COMPARISON: NONE HISTORY: Vaginal bleeding TECHNIQUE: 2 views FINDINGS: There is no sign of intestinal obstruction or pneumoperitoneum. Fecal pattern is normal. Th ere is no sign of a mass. There is thoracolumbar levoscoliosis. There are no pathologic calcification s over the kidneys. IMPRESSION: Nonacute abdomen.
[2017-08-06 23:09] VITALS: BP 122/81; PULSE 63; TEMP 98.2
== END 2017-08-06 23:12 | disposition home or self-care (01) ==
LOC: EC 19:42
DX: N93.9 Abnormal uterine and vaginal bleeding, unspecified (principal); R10.31 Right lower quadrant pain; R10.12 Left upper quadrant pain; G40.909 Epilepsy, unspecified, not intractable, without status epilepticus; F31.9 Bipolar disorder, unspecified; F41.9 Anxiety disorder, unspecified; F17.200 Nicotine dependence, unspecified, uncomplicated; Z87.442 Personal history of urinary calculi; Z88.8 Allergy status to other drugs, medicaments and biological substances; Z79.899 Other long term (current) drug therapy
CPT/HCPCS: 99284; 96374; 96361; 36415; 80053; 85025; 85610; 85730; 81001; 81025; 74018; J1885